=== PATIENT | male | born 1960 | race American Indian/Alaskan Native ===

== ENCOUNTER 2018-01-18 09:56 | Day surgery (SDC) | payer OTHER ==
[2018-01-18] MEDS ORDERED: CLEOCIN 600 MG/50 mL 600 MG/50 ML BAG IV NR (12:00)
[2018-01-18] MEDS ORDERED: DILAUDID IV PRN (12:05)
--- NOTE | 2018-01-18 12:17 | Anesthesia Consultation ---
Anesthesia Consult and Med Hx Date of service: 01/18/18 (fell fractured jaw) - Airway Anesthetic Teeth Evaluation: Poor, Chipped, Edentulous ROM Head & Neck: Inadequate Mental/Hyoid Distance: Inadequate Mallampati Class: Class III Intubation Access Assessment: Possibly Difficult - Pulmonary Exam CTA: Yes - Cardiac Exam Cardiac Exam: RRR - Pre-Operative Health Status ASA Pre-Surgery Classification: ASA3 Proposed Anesthetic Plan: General - Pulmonary Hx Smoking: Yes (1/2 PPD FOR 20 YEARS) Hx Asthma: No Hx Respiratory Symptoms: No SOB: No COPD: No Hx Pneumonia: No Hx Sleep Apnea: Yes - Cardiovascular System Hx Heart Attack/AMI: No Hx Angina: No Hx Percutaneous Transluminal Coronary Angioplasty (PTCA): No Hx Cardia Arrhythmia: No Hx Pacemaker: No Hx Internal Defibrillator: No Hx Valvular Heart Disease: No Hx Peripheral Vascular Disease: No - Central Nervous System Hx Neuromuscular Disorder: No Hx Seizures: No CVA: No Hx Back Pain: No Hx Psychiatric Problems: No - Gastrointestinal Hx Ulcer: No Hx Gastroesophageal Reflux Disease: No - Endocrine Hx Renal Disease: No Hx End Stage Renal Disease: No Hx Liver Disease: No Hx Insulin Dependent Diabetes: No Hx Thyroid Disease: No Hx Hypothyroidism: No Hx Hyperthyroidism: No - Other Systems Hx Alcohol Use: No Hx Substance Use: No Hx Cancer: No
--- NOTE | 2018-01-18 12:17 | Anesthesia Day of Surgery ---
Anesthesia Day of Surgery - Day of Surgery Patient Examined: Yes ([id number]) Patient H&P Reviewed: Yes Patient is NPO: Yes Beta Blockers: No Cardiac Clearance: No Pulmonary Clearance: No
[2018-01-18] MEDS ORDERED: PEPCID IV NR (13:00)
[2018-01-18] MEDS ORDERED: LACTATED RINGERS 1,000 ML IV SCH (13:00)
[2018-01-18] MEDS ORDERED: DIPRIVAN 10 MG/ML IV ONE (13:09)
[2018-01-18] MEDS ORDERED: SUBLIMAZE ONE (13:11)
[2018-01-18] MEDS ORDERED: VERSED ONE (13:29)
[2018-01-18] MEDS ORDERED: XYLOCAINE MPF 2% ONE (13:29)
[2018-01-18] MEDS ORDERED: QUELICIN ONE (13:35)
[2018-01-18] MEDS ORDERED: ADRENALIN ONE (13:52)
[2018-01-18] MEDS ORDERED: MARCAINE 0.5% 30 ML INFILTRATI ONE (13:52)
[2018-01-18] MEDS ORDERED: MARCAINE 0.5% INFILTRATI ONE (14:31)
[2018-01-18] MEDS ORDERED: ADRENALIN IV ONE (14:32)
[2018-01-18] MEDS ORDERED: ZOFRAN ONE (14:32)
[2018-01-18] MEDS ORDERED: DECADRON ONE (14:32)
[2018-01-18] MEDS ORDERED: DILAUDID ONE (14:39)
[2018-01-18] MEDS ORDERED: NACL 0.9% 1000 ML 1,000 ML ONE (15:07)
[2018-01-18] MEDS ORDERED: APRESOLINE IV PRN (16:34)
[2018-01-18] MEDS ORDERED: APRESOLINE ONE (16:41)
--- NOTE | 2018-01-18 16:57 | Post Anesthesia Evaluation ---
- Post Anesthesia Evaluation Airway Patent: Yes Stable Respiratory Function: Yes Nausea/Vomiting: No Temp > 96.8F: Yes Pain Manageable: Yes Adequeate Hydration: Yes Anesthesia Complications: Yes Block Receding Appropriately: Not Applicable Patient on Ventilator: No
[2018-01-18 17:09] VITALS: BP 158/75
--- NOTE | 2018-01-18 19:00 | Operative Report ---
PREOPERATIVE DIAGNOSIS: Left angle of mandible fracture. POSTOPERATIVE DIAGNOSIS: Left angle of mandible fracture. PROCEDURE: ORIF of left angle of mandible fracture. SURGEON: Doron Gregory MD BLANKING MACHINE OPERATOR: Alex Browne CSA. FINDINGS: Transverse fracture across the body/angle of the left mandible. DESCRIPTION OF PROCEDURE: The patient was brought to the operating room and placed on the table in supine position. Following administration of general anesthesia, the face was prepped with Betadine solution, draped in usual sterile manner. Electrocautery was used to incise the left lower buccal mucosa, deepened through subcutaneous fat down to the periosteum where subperiosteal elevation was performed to expose the fracture. Fracture was distracted, reduced and plated with a 4-hole bicortical titanium plate from [employer] system using 16 and 18 mm screws. The wound pocket was irrigated followed by closure of the mucosa using a running 3-0 chromic suture. The patient tolerated the procedure well and returned to recovery in stable condition. He will be placed on a liquid diet for the next two weeks, given the antibiotics and pain medication with followup in 1 week. JOB# [id number] FTW/DEVON
--- NOTE | 2018-01-19 07:19 | XRay Report ---
MANDIBLE, 3 VIEWS History: Left mandible fracture Findings: 3 fluoroscopic images of the calvarium including the mandible during surgery are presented. A displaced fracture through the body of the left mandible is identified. No other mandible fracture is detected although there is poor visualization of the condyles. An endotracheal tube is in place. Impression: Fracture, body of mandible on left side.
== END 2018-01-18 09:57 | disposition home or self-care (01) ==
LOC: OR 09:56
PROVIDERS: ATTEND Plastic Surgery
DX: S02.652A Fracture of angle of left mandible, initial encounter for closed fracture (principal); G47.30 Sleep apnea, unspecified; F17.210 Nicotine dependence, cigarettes, uncomplicated; W19.XXXA Unspecified fall, initial encounter; Y93.89 Activity, other specified; Y92.89 Other specified places as the place of occurrence of the external cause; Y99.8 Other external cause status; Z88.0 Allergy status to penicillin
CPT/HCPCS: 21462; 70100; 93005; 93010; C1713; J0171; J0330; J0360; J1100; J1170; J2250; J2405; J2704; J3010; J7030; J7120